=== PATIENT | female | born 1990 | race Hispanic/Latino ===

== ENCOUNTER → 2019-04-11 | Outpatient (CLI) | payer BC ==
[~2019-04-11] MED LIST: IOPAMIDOL 370 MG/ML 200 ML INFUS..BTL INJ ONE; SODIUM CHLORIDE 0.9% 50ML 50 ML ONE
--- NOTE | 2019-04-11 17:21 | Diagnostic Imaging Report ---
EXAM: CT Abdomen and Pelvis WITH intravenous contrast INDICATION: Abdominal pain, ovarian cysts COMPARISON: None. TECHNIQUE: Abdomen and pelvis were scanned utilizing a multidetector helical scanner from the lung base to the pubic symphysis after administration of IV contrast. Coronal and sagittal reformations were obtained. Routine protocol was performed. Scan was performed during portal venous phase. IV CONTRAST: 100mL of Isovue 370 ORAL CONTRAST: Water RADIATION DOSE: Total DLP: 265 mGy*cm Dose modulation, iterative reconstruction, and/or weight based adjustment of the mA/kV was utilized to reduce the radiation dose to as low as reasonably achievable. FINDINGS: LOWER THORAX: Normal. HEPATOBILIARY: No focal hepatic lesions. No biliary ductal dilatation. The gallbladder appears unremarkable. SPLEEN: No splenomegaly. PANCREAS: No focal masses or ductal dilatation. ADRENALS: No adrenal nodules. KIDNEYS/URETERS: Mild bilateral hydroureteronephrosis. No renal calculus. No solid renal mass lesion. PELVIC ORGANS/BLADDER: Multiple large bilateral multiloculated adnexal cystic lesions measuring up to 10.8 cm on the left and 9.1 cm on the right. These lesions exert mass effect upon the bladder inferiorly and upon both ureters as well as multiple loops of bowel. These lesions measure higher than simple fluid density, approximately 25 Hounsfield units. PERITONEUM / RETROPERITONEUM: No free air or fluid. LYMPH NODES: No lymphadenopathy. VESSELS: Unremarkable. GI TRACT: No abnormal bowel thickening. No bowel obstruction. BONES AND SOFT TISSUES: No acute osseous injury. IMPRESSION: Bilateral large multiloculated cystic adnexal lesions measure up to 10.8 cm on the left and 9.1 cm on the right. 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 Follow-up with pelvic MRI without and with contrast is recommended for further evaluation. Mass effect on both ureters, resulting in mild bilateral hydroureteronephrosis. No renal calculi. Signed by: Gwen Springer MD on 04/11/2019 5:18 PM
== END ==
LOC: CT 15:05
PROVIDERS: ATTEND Obstetrics & Gynecology
DX: R19.09 Other intra-abdominal and pelvic swelling, mass and lump (principal); N13.30 Unspecified hydronephrosis
CPT/HCPCS: 74177; 81025; Q9967

== ENCOUNTER → 2019-07-28 | Day surgery (SDC) | payer BC, OTHER ==
[2019-07-25 12:35] LABS: BASOPHILS # (AUTO) 0.1 (0.0-0.1); BASOPHILS % 0.6 % (0.0-1.0); EOSINOPHILS # (AUTO) 0.1 (0.0-0.4); EOSINOPHILS % 0.8 % (0.0-6.0); HEMATOCRIT 36.2 % (34.2-44.1); HEMOGLOBIN 10.8 g/dL (12.0-16.0); LYMPHOCYTES # (AUTO) 2.3 (1.0-3.2); MEAN CORPUSCULAR HEMOGLOBIN 22.5 pg (28-32); MEAN CORPUSCULAR HGB CONC 29.8 g/dL (31-35); MEAN CORPUSCULAR VOLUME 75.3 fL (81-99); MONOCYTES # (AUTO) 0.5 (0.2-0.8); NEUTROPHILS # (AUTO) 5.8 (2.1-6.9); NEUTROPHILS % 66.4 % (38.7-80.0); PLATELET COUNT 268 x10e3/uL (140-360); RED BLOOD COUNT 4.81 x10e6/uL (3.6-5.1)
[2019-07-25 12:39] LABS: CLARITY,URINE SL CLOUDY (CLEAR); COLOR,URINE ORANGE (YELLOW); KETONES,URINE NEGATIVE (NEGATIVE); LEUKOCYTE ESTERASE ,URINE NEGATIVE (NEGATIVE); NITRITE,URINE NEGATIVE (NEGATIVE); PROTEIN,URINE DIPSTICK NEGATIVE (NEGATIVE); URINE UROBILINOGEN 0.2 mg/dL (0.2 - 1)
[2019-07-25 12:40] LABS: BILIRUBIN,URINE NEGATIVE (NEGATIVE)
[2019-07-25 14:37] LABS: ALANINE AMINOTRANSFERASE 12 IU/L (0-55); ALBUMIN 3.6 g/dL (3.5-5.0); ALBUMIN/GLOBULIN RATIO 0.8 (0.8-2.0); ALKALINE PHOSPHATASE 55 IU/L (40-150); ANION GAP 16.9 mmol/L (8-16); BLOOD UREA NITROGEN 7 mg/dL (7-26); BUN/CREATININE RATIO 11 (6-25); CALCIUM 8.4 mg/dL (8.4-10.2); CARBON DIOXIDE 19 mmol/L (22-29); CHLORIDE 106 mmol/L (98-107); CREATININE, SERUM 0.62 mg/dL (0.57-1.11); EST GLOMERULAR FILTRATION RATE > 60 ML/MIN (60-); GLUCOSE 79 mg/dL (74-118); POTASSIUM 4.9 mmol/L (3.5-5.1); SODIUM 137 mmol/L (136-145)
[~2019-07-28] MED LIST changes: +ACETAMINOPHEN 1000 MG/100 ML 100 ML IV ONE; +ACETAMINOPHEN/CODEINE 300MG - 30MG TAB ONE; +BUPIVACAINE 0.25%/EPI 30ML SDV INJ ONE; +DEXAMETHASONE SOD PHOS INJ 4 MG/ML VIAL ONE; +FENTANYL CITRATE/PF 100MCG/2 ML INJ ONE; +GLYCOPYRROLATE INJ 0.2 MG/ML VIAL ONE; -IOPAMIDOL 370 MG/ML 200 ML INFUS..BTL INJ ONE; +KETOROLAC TROMETHAMINE 30 MG/ML VIAL ONE; +LIDOCAINE HCL 2% LOCAL INJ 5 ML SDV VIAL INJ ONE; +MIDAZOLAM HCL 2 MG/2 ML VIAL ONE; +NEOSTIGMINE 1 MG/ML 10ML VIAL ONE; +ONDANSETRON HCL INJ 2MG/ML 2ML 2 MG/ML VIAL ONE; +PROPOFOL IV EMULSION 10 MG/ML 20 ML VIAL ONE; +ROCURONIUM BROMIDE 10 MG/ML 5ML VIAL IV ONE; +SEVOFLURANE INHAL SOLN 250 ML PEN BTL ONE; -SODIUM CHLORIDE 0.9% 50ML 50 ML ONE
[2019-07-28 18:00] VITALS: BP 114/70
--- NOTE | 2019-07-28 22:16 | Operative Report ---
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 POSTOPERATIVE DIAGNOSES: Bilateral endometriomas, stage IV endometriosis. TITLE OF PROCEDURES: Diagnostic laparoscopy, bilateral ovarian cystectomy, excision of bilateral endometriomas and lysis of adhesions. GEOTECHNICAL ENGINEERING TECHNICIAN: Dr. James Lopez. ANESTHESIA: General with Dr. Pineda and Tess retail assistant store manager. INDICATION FOR OPERATION: The patient is a 29-year-old, 1, para 1, with last menstrual period on July 22, 2019, on no contraception, who complained of bloating 6 months after abdominoplasty. In August of 2018, she developed lower abdominal pain, was found to have bilateral ovarian tumors. On exam, sono, and CT scan to rule out dermoids revealed suggestion of mucinous cystadenomas. The patient is therefore here for laparoscopic cystectomy, possible laparotomy and possible oophorectomy. The patient does desire more children and would like to keep her fertility if possible. She is therefore taken to the operating room at this time. It should be noted that the left ovarian mass is 13 cm in size and the right ovarian mass is 10 cm in size, mostly cystic with a small amount of solid component. FINDINGS AT SURGERY: There was a 13 cm left endometrioma with chocolate cyst, 10 cm right endometrioma with chocolate cyst. There was a small paratubal cyst on the right side, which was easily drained. There were a few adhesions of bowel to both endometriomas, which were lysed as much as possible. The cul-de-sac was obliterated with adhesions and both tubes showed scarring with mild hydrosalpinx, but also the fimbria of both tubes were obliterated by the endometriosis, giving a relatively poor prognosis for fertility without assisted reproductive technology. DESCRIPTION OF PROCEDURE: The patient was taken to the operating room, placed on the table in supine position. The patient was then placed in lithotomy position. The perineum was prepared and draped in the usual sterile manner as was the abdomen. Pelvic exam revealed bilateral large ovarian masses, which were not very mobile. The bladder was drained by in and out catheterization. Then, a small incision was made approximately 6 cm above the umbilicus in the midline. The trocar was inserted through the incision into the peritoneal cavity under direct visualization by laparoscopy. Pneumoperitoneum was created by insufflation of 5 L of carbon dioxide gas and a filling pressure of 8-10 mmHg. In the findings, upon entering was a 13 cm left endometrioma with chocolate cyst. A 10 cm right endometrium with chocolate cyst, a small right paratubal cyst, and adhesions about both endometriomas at their most posterior parts. The cul-de-sac was also obliterated with adhesions and both tubal fimbria were abnormal with scarring with apparent poor prognosis for fertility. At this point, the decision was made to rupture the 13 cm left ovarian cyst. Cautery was placed on the most superior aspect of the ovary and a small hole was made, after which, suction was applied inside the ovarian cyst. The cyst was bloody with approximately 600-700 mL of bloody fluid aspirated from the cyst. We then irrigated and suctioned, and we then made the decision to remove any cyst wall, but to leave as much normal ovary as possible. So, using the LigaSure instrument, we removed parts of the cyst and the ovarian wall, cauterizing and cutting until a good portion of the ovary was biopsied and removed. We then irrigated and suctioned the cyst cavity, and found no evidence of bleeding. The left ovary was greatly reduced in size, but still with multiple follicles left behind and still approximately at least 3 cm in size. Then, attention was turned to the cyst on the right side. It was approximately 10 cm in size. The same thing was performed with cautery of the cyst wall, again as soon as we were able to open it, we placed a suction device and suctioned out a lot of bloody fluid between the 2 cysts, approximately 1200 mL of blood was aspirated. At this point, we suctioned out all the bloody fluid. There was a little bit of chocolate cyst fluid at the base, and then we irrigated and suctioned the cyst cavity. Then, we removed a portion of the ovarian wall with the cyst using the LigaSure to achieve hemostasis and at this point, both the portions of the left and right ovary were detached, made available for removing. At this point, the 12 mm trocar was placed for a 5 mm trocar had been in the right lower quadrant and there was a 5 mm trocar in the left lower quadrant for holding the tissue and the Endobag was placed. The ovaries were removed and sent to pathology for definitive diagnosis. Not the entire ovaries, but the portions of the ovary involving the endometriosis. Then, we inspected and lysed some adhesions using the LigaSure and blunt and sharp dissection. Any bleeders were coagulated with the LigaSure instrument. Then, at this point, there was good hemostasis evidence of both ovaries. Both ovaries were substantially smaller than prior to surgery, but still plenty of normal ovarian tissue in both, and there were still some adhesions above to the ovaries, which we lysed what we could without injuring the bowels, but some of the adhesions were still present. Then, we inspected for other cysts in the uterus. The uterus was completely normal in appearance. Both tubes were inspected. There was a right paratubal cyst, which was lanced and suctioned and irrigated, and there was a paratubal cyst. Then, reinspected both tubes. Both tubes were slightly thickened and the fimbria of both tubes were destroyed by adhesions from the endometrial with the fertility prognosis not appearing to be very good, as there was no or minimal normal fimbrial tissue noted. The cul-de-sac was obliterated where we were really unable to get into the cul-de-sac and making this stage IV endometriosis between the bilateral large endometriomas and the obliterated cul-de-sac. At this point, we irrigated and suctioned as much as possible. Inspection found no further bleeding, but determined that the patient likely would need in vitro fertilization to achieve if she so desired and she may also require a hysterectomy and bilateral oophorectomy when she is done having kids because of the stage IV endometriosis. However, this will be followed clinically and see if that is necessary. After inspecting further noting a major decrease in volume of the ovaries due to the removal of the cysts, the procedure was deemed terminated. All the air and instruments were removed from the abdomen. The 12 mm trocar site was stitched closed in the fascial area and the then all the air possible was removed, and then all the skin incisions were closed with inverted stitches of 4-0 Monocryl suture, thus completing the procedure. Dr. Lopez assisted with retraction, hemostasis, visualization, suturing, irrigation and suctioning throughout the procedure. There were no complications noted. Estimated blood loss was 20 mL from the procedure with another 1200 mL of bloody fluid within the ovarian cyst. The patient tolerated the procedure well and she was transferred from the operating room to recovery room in stable condition. MD SAIGE Cunningham/DAVE /[id number]
== END | disposition home or self-care (01) ==
LOC: OR 11:27
PROVIDERS: ATTEND Obstetrics & Gynecology
DX: N80.1 Endometriosis of ovary (principal); Z01.812 Encounter for preprocedural laboratory examination; Z11.59 Encounter for screening for other viral diseases; K66.0 Peritoneal adhesions (postprocedural) (postinfection)
CPT/HCPCS: 36415; 58662; 80053; 81003; 84702; 85025; 87635; 88307; J0131; J1100; J1885; J2001; J2250; J2405; J2704; J2710; J3010; 88304